=== PATIENT | male | born 1960 | race Caucasian/White ===

== ENCOUNTER → 2024-02-29 | Outpatient (CLI) | payer OTHER, SELFPAY ==
--- NOTE | 2024-02-29 12:24 | NEURO ---
NCS and/or EMG Patient Report Ordering Doctor: Nico Orozco DATE OF SERVICE: 02/29/24 Rachid presents with complaints of numbness and tingling in the right hand. He notes it primarily in the first 3 digits and occasionally radiates into the forearm. Electrodiagnostic findings: Right median motor nerve demonstrates prolonged distal latency with reduced amplitude and normal conduction velocity. Right ulnar motor responses within normal limits, including conduction across the elbow. Prolonged right median sensory latency at the wrist. Needle EMG testing was performed in the right upper limb. All muscles tested showed no evidence of denervation with normal motor unit potentials. Electrodiagnostic impression: This is an abnormal study in the right upper limb 1. Electrodiagnostic findings suggestive of right-sided median mononeuropathy. This is consistent with a moderate right carpal tunnel syndrome. Multi Select Codes Neurology Neurology Interp Codes: 45092-37 Musc test done w/n test comp (interp) and 21767-80 Nrv cndj tst 5-6 studies (interp)
== END | disposition home or self-care (01) ==
PROVIDERS: PCP Physician Assistant; Referring Provider Orthopaedic Surgery; Visit Provider Orthopaedic Surgery
DX: M79.641 Pain in right hand (principal); R20.2 Paresthesia of skin
CPT/HCPCS: 95886; 95909